=== PATIENT | male | born 1945 | race Caucasian/White ===

== ENCOUNTER 2020-05-11 13:06 | Emergency (ER) | payer MEDICARE, OTHER | END 2020-05-11 16:07 | disposition left against medical advice (07) | LOC: JP.ED 13:06 | DX: Z53.21 Procedure and treatment not carried out due to patient leaving prior to being seen by health care provider (principal) | CPT/HCPCS: 82962 ==

== ENCOUNTER 2021-07-25 06:03 | Emergency (ER) | payer MEDICARE, OTHER ==
[2021-07-25 07:09] LABS: CORONAVIRUS COVID-19 NAA POSITIVE (NEGATIVE)
[2021-07-25] MEDS ORDERED: EPINEPHrine 1 MG/ML SDV IM PRN (08:45)
[2021-07-25] MEDS ORDERED: Famotidine 20 MG/2 ML SDV IV PRN (08:45)
[2021-07-25] MEDS ORDERED: diphenhydrAMINE 50 MG/ML SDV IVPUSH PRN (08:45)
[2021-07-25] MEDS ORDERED: Acetaminophen 325 MG Tab PO PRN (08:45)
[2021-07-25] MEDS ORDERED: methylPREDNISolone Sodium Succinate 125 MG/2 ML SDV IVPUSH PRN (08:45)
[2021-07-25] MEDS ORDERED: Sodium Chloride 0.9% 1,000 ML IV SCH (09:00)
== END 2021-07-25 10:28 | disposition home or self-care (01) ==
LOC: JP.ED 06:03
DX: U07.1 COVID-19 (principal); E78.00 Pure hypercholesterolemia, unspecified; K21.9 Gastro-esophageal reflux disease without esophagitis; E11.9 Type 2 diabetes mellitus without complications; Z79.82 Long term (current) use of aspirin; Z79.84 Long term (current) use of oral hypoglycemic drugs; Z79.899 Other long term (current) drug therapy
CPT/HCPCS: 0241U; 87070; 87205; 99283; J7030; M0247; Q0247